=== PATIENT | male | born 1945 | race Caucasian/White ===

== ENCOUNTER 2017-10-09 16:08 | Inpatient (IN) | payer OTHER ==
[2017-10-10] MEDS ORDERED: BISACODYL 10 MG SUPP PR PRN (17:34)
[2017-10-10] MEDS ORDERED: POLYETHYLENE GLYCOL 3350 17 GM PKT PO PRN (17:34)
[2017-10-10] MEDS ORDERED: SENNOSIDES 1 TAB PO PRN (17:34)
--- NOTE | 2017-10-10 19:24 | GHP ---
[f rep st] HISTORY AND PHYSICAL POST ADMISSION PHYSICIAN EVALUATION AND REHABILITATION TREATMENT PLAN DATE OF ADMISSION: 10/10/2017 DATE OF EVALUATION: 10/10/2017 TIME OF EVALUATION: 1730 hours. REFERRING FACILITY: [facility]. REFERRING PHYSICIAN: Shay Goyal MD IMPAIRMENT GROUP: 1.1. DATE OF ONSET: 10/07/2017. REHABILITATION DIAGNOSIS: Bilateral thalamic cerebrovascular accident. ETIOLOGIC DIAGNOSIS: Left body involvement (right brain). HISTORY OF PRESENT ILLNESS: This patient was admitted to [facility] on 10/07/2017 after his found him to be lethargic and with slurred speech. He could not walk. He was brought to the Emergency Department , and was found to have an NIH Stroke Scale of 25-28. He was intubated and sent to the ICU. 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 He was treated with tPA, thrombolysis, and had considerable improvement. The etiology of the stroke was not completely clear. Atrial fibrillation was considered, but not found on telemetry. Subsequent MRI of the brain showed a bi-thalamic infarct, and small posterior cerebral artery and middle cerebral artery watershed infarcts. I do not have a record of an echocardiogram; presumably there was no embolic source seen. He had considerable improvement during his stay after thrombolysis. He was medically stable and ready for inpatient rehabilitation. OTHER LABORATORIES AND STUDIES: he initially had a low potassium, but this was corrected. Magnesium was normal. Urinalysis was normal. Basic metabolic profile showed renal insufficiency with a creatinine initially of 1.5, but this improved to 1.08 with an estimated GFR of 69. Urine drug screen done for altered mental status was normal. CBC was normal. Serum toxicology screen was negative for acetaminophen or alcohol. His salicylate level was nontoxic at 2.8. Hemoglobin A1c was 6.3. Total cholesterol was 184. HDL was low at 28. LDL was 89. Triglycerides were high at 337. Phosphorus was normal. Coagulation studies were normal. Troponin was negative. PRECAUTIONS: He is a fall risk. ACTIVE COMORBIDITIES: He has no tier 1, tier 2, or tier 3 comorbidities. PAST MEDICAL HISTORY: Hypertension. Influenza approximately 10 days ago. PAST SURGICAL HISTORY: He has not had surgeries. MEDICATIONS: Prior to admission: Amlodipine Admission medications: 1. Aspirin 81 mg p.o. daily. 2. Atorvastatin 40 mg p.o. at bedtime. 3. Clopidogrel 75 mg p.o. daily. 4. Nicotine patch. ALLERGIES: There are no known drug allergies. FAMILY HISTORY: Noncontributory. SOCIAL HISTORY: He is . He lives with his . He has 3 children. His youngest daughter is in medical school at the [employer] in [place]. He is a smoker, and has occasional alcohol use. 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 REVIEW OF SYSTEMS: He reports constipation x5 days. He reports altered sensation of taste, but denies change in smell. He reports visual changes, and in particular says that when he is reading he gets stuck on one line on the page and cannot skip to the next line. He denies double vision. He denies headache. He denies weakness, numbness, or tingling of the extremities. He denies difficulty swallowing. He denies cough or dyspnea. He does not have any craving for tobacco, and declines the offer of the nicotine patch. He denies nausea or vomiting. He has a reduced appetite. He thinks he has lost some weight. He denies chest pain or palpitations, joint pain or joint swelling , skin rash or skin breakdown. He has nocturia x2, typically. Otherwise, a 10- point review of systems is negative. PHYSICAL EXAM: VITAL SIGNS: Blood pressure is 133/79, heart rate is 73, respiratory rate is 16, oxygen saturation is 94% on room air, temperature is 36.6 degrees centigrade, his weight is 88.2 kg. GENERAL: This is a well- nourished, well-developed, elderly man. Appears his chronologic age. Well groomed, cooperative and in no acute distress. HEENT: Extraocular movements are overall intact, but he seems to have convergence with upgaze. Pupils are equal, round, and reactive to light. Visual huff are intact by confrontation. Mucous membranes are moist. Dentition is in good condition. He has a moderately crowded airway, Mallampati class 3. NECK: Supple. HEART: There is a regular rate and rhythm with no murmurs, rubs, or gallops. Heart sounds are somewhat distant. LUNGS: Clear to auscultation bilaterally. ABDOMEN: Soft, nontender, nondistended with normoactive bowel sounds, and no hepatosplenomegaly. EXTREMITIES: There is no cyanosis, clubbing, or edema. Radial and dorsalis pedis pulses are 1+ bilaterally. NEUROLOGIC: He is alert and oriented x3. He has word-finding difficulty. He has perseveration. There is no focal weakness. Sensation is intact to light touch. There is no extinction of sensation to double simultaneous stimulation. Deep tendon reflexes are 2+ bilaterally at the biceps, patella, and Achilles tendons. Plantar reflexes upgoing on the right and downgoing on the left. There is no pronator drift. Gait is mildly wide-based with short steps. There is no loss of balance observed. CURRENT LEVEL OF FUNCTION: Regarding diet, feeding and swallowing, he had been on a dysphagia 1 nectar thick diet, but subsequently he passed a video fluoroscopic swallow study, and was cleared for regular texture food and liquids. Regarding dressing, upper extremity required minimal assist, and lower extremity required assist. However, on exam today, he was able to doff and don socks and shoes independently. Toileting required minimal assist for transfers. He was able to transfer out of bed with a front-wheeled walker and minimal assist. Gait required minimal to moderate assistance with a front- wheeled walker. However, on today's exam, he was able to ambulate independently. For stairs he needed assistance. Regarding cognition, he was noted to follow simple commands. He had impaired problem solving and impaired insight, and he was overall noted to have apraxia, coordination deficits, and motor planning deficits. IMPRESSION: This patient is a 72-year-old man with a history of smoking and with cerebrovascular disease, who had a cerebrovascular accident with difficulty ambulating and altered level of consciousness. Initially, he was intubated in the hospital to protect his airway. He received tissue plasminogen activator thrombolysis, and has had considerable improvement. Evaluation with MR imaging revealed bilateral medial thalamic infarcts, as well as small watershed infarcts in the right posterior cerebral artery and middle cerebral artery territories. Following thrombolysis, he was treated with anti- platelet agents and atorvastatin, as he has dyslipidemia. He has had considered considerable functional improvement, but remains appropriate for inpatient rehabilitation to further evaluate and treat deficits to mobility, as well as activities of daily living. He will need particular attention from occupational therapy regarding visual processing and reaction time regarding potential safety of driving. He intends to return to driving for [employer] as soon as he can. He also has cognitive deficits, and will benefit from evaluation and treatment with speech therapy His goal is to complete a rehabilitation stay, and return home with his family. For a safe discharge he will need to achieve modified independence with mobility, activities of daily living, and medication management. There will need to be medication education and neurologic education for the patient and his family, and discharge planning for home health care and any other needs. He will have therapy with physical therapy, occupational therapy, and speech and language pathology for 60 minutes each day, for each discipline, on 5-7 days per week. When screened, his expected duration of stay was 17-21 days, but he appears to have improved since his screening in significant ways, including greater independence with mobility and normalization of swallowing. So, it is likely that his stay will be more on the 5-7 day range. It is anticipated that upon discharge he will continue to benefit from home health services, including speech and language pathology, occupational therapy and physical therapy. He also should have a pre-driving screen per occupational therapy. PLAN: 1. Cerebrovascular accident, bilateral medial thalamus, and small watershed infarcts in the right posterior cerebral artery and middle cerebral artery distributions. PT and OT to optimize mobility and activities of daily living towards discharge home at the modified independent level. 2. Cognitive impairment and reading difficulty. Speech language pathology regarding cognition. OT for visual processing evaluation. 3. Tobacco dependence syndrome. He believes that he is not addicted to tobacco. He denies craving. He agrees to continue the nicotine patch on a p.r.n. basis. 4. Dyslipidemia. He has been started on atorvastatin. He will be monitored for any adverse effects. 5. Renal insufficiency, normalized during his stay. There is no need for further laboratory studies at present. 6. Constipation, likely due to immobility. He does not have a history of constipation. I have ordered a bisacodyl suppository, as it has been 5 days since his last bowel movement. He might be best served by initially stimulating bowel movement from the distal GI tract, and I have ordered senna and polyethylene glycol on a p.r.n. basis. 7. Dysgeusia. Brief literature review finds reports of taste alteration with dorsomedial thalamic injury. He will have a dietary consult and attempt to provide foods which he would prefer, especially with his swallow being cleared. Family can bring in food. It is hoped that he will have recovery of normal taste sensation. 8. Weight loss per patient. He thinks it has something to do with recent history of upper respiratory infection and diagnosis of influenza, which per family happened approximately 10 days prior to the stroke. Again, there will be consultation with the dietitian, and his weight will be monitored on a routine basis. 9. Prophylaxis. He is not hemiparetic, and he is likely able to ambulate as far as 150 feet 3 times a day or more. There is no indication for chemoprophylaxis. He will have SCDs at night until his mobility is clearly normalized. Followup. It is unclear from materials received from [facility] whether or not followup long-term cardiac monitoring is indicated to rule out occult atrial fibrillation. This will be determined during his stay, and appropriate referral will be made. He was seen by Dr. Shay Goyal of the neurology service, and likely will need to follow up with Dr. Goyal. /[id number]/MODL MTDD
--- NOTE | 2017-10-10 19:28 | PDOREHIP ---
Admission [facility] - Admission - 3 Day Assessment Period Admission Date/Day 1: 10/10/17 Day 2: 10/11/17 Day 3: 10/12/17 - Active Diagnoses Comorbidities and Co-existing Conditions at Admission: 95653. None of the Above - Skin Conditions Unhealed Pressure Ulcer (1 or more/Stage 1 or >)-Admission: 0. No
[2017-10-10] MEDS: ATORVASTATIN CALCIUM 40 MG TAB PO SCH (21:17)
[2017-10-11] MEDS: NICOTINE 14 MG/24 HR PATCH TD SCH (08:38)
[2017-10-11] MEDS: ASPIRIN 81 MG CHEWABLE TAB PO SCH (08:38)
[2017-10-11] MEDS: CLOPIDOGREL BISULFATE 75 MG TAB PO SCH (08:38)
--- NOTE | 2017-10-11 17:51 | HOSPPROG ---
Hospitalist Progress Note Assessment/Plan: Assessment: 72 yo M p/w thalamic CVA s/p tPA w/ residual cognitive / visual / ambulatory / taste deficits Plan: # CVA. Thalamic, debility via cognitive / ambulatory impairments - cont ASA/plavix/statin - LDL 89 (goal 70), A1c 6.3% - will require outpatient cardiac rhythm monitoring - cont to monitor BP - f/u w/ Dr. Goyal - ongoing PT/OT/Cog therapy # Constipation. Resolved, cont bowel regimen Diet. Regular PPx. Mod risk, SCDs Code. Full Dispo. Ongoing therapy needs Subjective: patient feels like he is getting good therapy, had BM Objective: Vital Signs Temp Pulse Resp BP Pulse Ox 36.3 C 72 16 134/75 H 95 10/11/17 08:00 10/11/17 08:00 10/11/17 08:00 10/11/17 08:00 10/11/17 08:00 10/10/17 10/11/17 10/12/17 05:59 05:59 05:59 Intake Total 200 Balance 200 - Physical Exam Constitutional: no apparent distress, appears nourished, not in pain, other ( weathered) Eyes: PERRL, anicteric sclera, EOMI Cardiovascular: regular rate and rhythym, no murmur, rub, or gallop, No edema Respiratory: no respiratory distress, no rales or rhonchi, clear to auscultation Gastrointestinal: normoactive bowel sounds, soft, non-tender abdomen, no palpable masses Neurologic: AAOx3, sensation intact bilaterally, No weakness Psychiatric: interacting appropriately, not anxious, not encephalopathic, thought process linear ICD10 Worksheet Patient Problems: Problems Problem Status Onset CVA (cerebral vascular accident) Acute
[2017-10-11] MEDS: ATORVASTATIN CALCIUM 40 MG TAB PO SCH (21:37)
[2017-10-12] MEDS: NICOTINE 14 MG/24 HR PATCH TD SCH (08:06)
[2017-10-12] MEDS: ASPIRIN 81 MG CHEWABLE TAB PO SCH (08:25)
[2017-10-12] MEDS: CLOPIDOGREL BISULFATE 75 MG TAB PO SCH (08:26)
--- NOTE | 2017-10-12 12:12 | HOSPPROG ---
Hospitalist Progress Note Assessment/Plan: Assessment: 72 yo M p/w thalamic CVA s/p tPA w/ residual cognitive / visual / ambulatory / dysguesia Plan: # CVA. Thalamic, debility via cognitive / ambulatory impairments, patient with good insight and intentional speech - reviewed DC Summary by [facility], reports significant vascular occlusion but no flow limiting stenosis requiring intervention - cont ASA/plavix/statin - LDL 89 (goal 70), A1c 6.3% - will require outpatient cardiac rhythm monitoring - cont to monitor BP - f/u w/ Dr. Goyal - ongoing PT/OT/Cog therapy - counseled patient extensively that his level of insight is encouraging and improves his ability to engage in therapies - encouraged him to continue working diligently on his reading tasks, which he is doing between therapy sessions (has not been able to get past 1st page during entirety of hospitalization) - appears to have some possible disinhibition, but may be his baseline # Cough. Poor insp/exp effort on pulm exam, not hypoxic - cough/congestion may be related to abruptly/recently stopping smoking, commonly occurs - will add anti-histamine HS, mucinex scheduled for symptomatic relief - reviewed [facility] records, report most recent CXR 10/07 w/o infiltrate, but he is at risk for developing PNA given that he was on vent during that episode of care - does not appear toxic, will get a CBC and sputum Cx to gauge whether he has leukocytosis which would prompt us to investigate further w/ CXR # Constipation. Resolved, cont bowel regimen Diet. Regular PPx. Mod risk, SCDs Code. Full Dispo. Ongoing therapy needs Subjective: ongoing productive cough Objective: Vital Signs Temp Pulse Resp BP Pulse Ox 36.6 C 89 18 123/71 H 93 10/12/17 08:00 10/12/17 08:00 10/12/17 08:00 10/12/17 08:00 10/12/17 08:00 10/11/17 10/12/17 10/13/17 05:59 05:59 05:59 Intake Total 200 360 350 Output Total 100 200 Balance 200 260 150 - Time Spent With Patient Time Spent with Patient: greater than 35 minutes Time Spent with Patient: Greater than 35 minutes spent on this patients care, greater than 50% of time spent counseling, educating, and coordinating care regarding the above mentioned plan. - Physical Exam Constitutional: no apparent distress, appears nourished, not in pain Cardiovascular: regular rate and rhythym, no murmur, rub, or gallop (distant), No edema Respiratory: reduced air movement (on expiration), other (cough triggered w/ deep insp), No expiratory wheeze, No inspiratory crackles, No bronchial breath sounds, No respiratory distress Gastrointestinal: normoactive bowel sounds, soft, non-tender abdomen, no palpable masses Neurologic: AAOx3, No weakness, No facial droop Psychiatric: not encephalopathic, thought process linear, anxious, other (good insight, intentional speech, fluent speech, some disinhibition by patient discussing physical attributes of female staff), No agitated ICD10 Worksheet Patient Problems: Problems Problem Status Onset CVA (cerebral vascular accident) Acute
[2017-10-12] MEDS ORDERED: ALBUTEROL 200 PUFFS/18 GM MDI IH PRN (12:45)
[2017-10-12] MEDS: guaiFENesin 600 MG TAB.ER PO SCH ×2 (13:12→20:01)
[2017-10-12 14:07] LABS: PLATELET COUNT 229 10^3/uL (150-400)
[2017-10-12] MEDS: ATORVASTATIN CALCIUM 40 MG TAB PO SCH (20:01)
[2017-10-12] MEDS: CETIRIZINE 10 MG TAB PO SCH (20:01)
--- NOTE | 2017-10-13 09:47 | SOAPPROG ---
SOAP Progress Note Assessment/Plan: Assessment: * Cerebrovascular accident, bilateral medial thalamus, and small watershed infarcts in the right posterior cerebral artery and middle cerebral artery distributions. * PT and OT to optimize mobility and activities of daily living towards discharge home at the modified independent level. * Cognitive impairment and reading difficulty. * Speech language pathology regarding cognition. OT for visual processing evaluation. * Tobacco dependence syndrome. * Denies craving * Nicotine patch is available on a p.r.n. basis. * Dyslipidemia. He has been started on atorvastatin. He will be monitored for any adverse effects. * Renal insufficiency, normalized during his stay. There is no need for further laboratory studies at present. * Constipation, likely due to immobility. * Responding to Senna * Dysgeusia. Brief literature review finds reports of taste alteration with dorsomedial thalamic injury. * May explain his reaction to hospital food. * Weight loss per patient. * Consultation with the dietitian. * Prophylaxis. He is not hemiparetic, and has recover normal ambulation. * No indication for pharmacologic prophylaxis. * Will discontinue SCDs. Followup. Has Holter monitor and will follow up with Cardiology. He was seen by Dr. Shay Goyal of the neurology service, and will need to follow up with Dr. Goyal. 10/13/17 14:52 Subjective: Dislikes the SCDs. Would rather not wear the Holter monitor. Does not like the food but finds it palatable if he adds enough salt and pepper. Otherwise without complaints. Objective: Vital Signs Temp Pulse Resp BP Pulse Ox 36.8 C 76 13 117/70 91 L 10/12/17 19:50 10/12/17 19:50 10/12/17 19:50 10/12/17 19:50 10/12/17 19:50 Microbiology 10/12/17 18:10 - Final Sputum, Expectorated Laboratory Results 10/12/17 13:00 10/12/17 13:00 10/12/17 10/13/17 10/14/17 05:59 05:59 05:59 Intake Total 360 910 Output Total 100 301 Balance 260 609 Physical Exam - Physical Exam General Appearance: WD/WN, alert, no apparent distress Respiratory: normal breath sounds, No crackles, No rhonchi, No wheezing Cardiac/Chest: regular rate, rhythm, No edema Skin: normal color, warm/dry Neuro/Psych: alert, normal mood/affect, oriented x 3, No abnormal gait ICD10 Worksheet Patient Problems: Problems Problem Status Onset CVA (cerebral vascular accident) Acute
[2017-10-13] MEDS ORDERED: NICOTINE 14 MG/24 HR PATCH TD PRN (09:49)
[2017-10-13] MEDS: ASPIRIN 81 MG CHEWABLE TAB PO SCH (09:55)
[2017-10-13] MEDS: CLOPIDOGREL BISULFATE 75 MG TAB PO SCH (09:55)
[2017-10-13] MEDS: guaiFENesin 600 MG TAB.ER PO SCH ×2 (09:55→20:44)
[2017-10-13] MEDS: NICOTINE 14 MG/24 HR PATCH TD SCH (10:01)
[2017-10-13] MEDS ORDERED: PNEUMOC 13-VAL CONJ-DIP CRM/PF 0.5 ML SYR IM ONE ×3 (15:26→20:34)
[2017-10-13] MEDS: CETIRIZINE 10 MG TAB PO SCH (20:44)
[2017-10-13] MEDS: ATORVASTATIN CALCIUM 40 MG TAB PO SCH (20:45)
[2017-10-14] MEDS: guaiFENesin 600 MG TAB.ER PO SCH ×2 (09:09→21:05)
[2017-10-14] MEDS: ASPIRIN 81 MG CHEWABLE TAB PO SCH (09:09)
[2017-10-14] MEDS: CLOPIDOGREL BISULFATE 75 MG TAB PO SCH (09:09)
--- NOTE | 2017-10-14 10:09 | SOAPPROG ---
SOAP Progress Note Assessment/Plan: 72-year-old male with bilateral medial thalamic stroke Today's update: Patient doing well and very talkative. 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 History of elevated white blood cell count and renal insufficiency, rechecking Chem 7 and CBC tomorrow. Preliminary culture of sputum showed mixed denilson, smear did have 2+ polys. No respiratory symptoms per the patient, exam clear. Continue to monitor. A total of 35 min was spent on the floor in the care of the patient, the majority of which was spent in the counseling and coordination of care regarding overall rehab plan with the patient and options for continuing therapy on discharge. * Cerebrovascular accident, bilateral medial thalamus, and small watershed infarcts in the right posterior cerebral artery and middle cerebral artery distributions. Impairments in mobility and self-care. * PT and OT to optimize mobility and activities of daily living towards discharge home at the modified independent level. * Cognitive impairment and reading difficulty. * Speech language pathology regarding cognition. OT for visual processing evaluation. * Tobacco dependence syndrome. * Nicotine patch is available on a p.r.n. basis. * Dyslipidemia. He has been started on atorvastatin. He will be monitored for any adverse effects. * Renal insufficiency, normalized during his stay. Will recheck a Chem 7 and CBC given elevated white blood cell count and mild hypernatremia as well as history of renal insufficiency. * Constipation, likely due to immobility. * Responding to Senna * Dysgeusia. Brief literature review finds reports of taste alteration with dorsomedial thalamic injury. * May explain his reaction to hospital food. * Weight loss per patient. * Consultation with the dietitian. * Prophylaxis. He is not hemiparetic, and has recovered normal ambulation. * No indication for pharmacologic prophylaxis. Followup. Has Holter monitor and will follow up with Cardiology. He was seen by Dr. Shay Goyal of the neurology service, and will need to follow up with Dr. Goyal. 10/14/17 10:04 10/14/17 10:07 Subjective: Chief complaint: Bad tasting food No acute events overnight. Patient endorsed that his appetite is improving, still feels that the coffee is bad. Denies any shortness of breath or chest pain, no new numbness, tingling, or weakness. He is frustrated that his reading level is not up to his premorbid status of reading a approximately 800 page book in 2 days. Denies feeling fever or chills. Discussed and answered questions extensively regarding discharge planning and overall rehabilitation course. Objective: Vital Signs Temp Pulse Resp BP Pulse Ox 36.6 C 65 16 134/76 H 91 L 10/14/17 06:25 10/14/17 06:25 10/14/17 06:25 10/14/17 06:25 10/14/17 06:25 Microbiology 10/12/17 18:10 - Final Sputum, Expectorated Laboratory Results 10/12/17 13:00 10/12/17 13:00 10/13/17 10/14/17 10/15/17 05:59 05:59 05:59 Intake Total 910 200 200 Output Total 301 300 150 Balance 609 -100 50 Physical Exam - Physical Exam General Appearance: alert, no apparent distress EENT: No scleral icterus (R), No scleral icterus (L) Respiratory: lungs clear, normal breath sounds, No respiratory distress, No accessory muscle use, No decreased breath sounds, No crackles, No rhonchi, No wheezing Cardiac/Chest: normal peripheral pulses, regular rate, rhythm, No edema Skin: normal color, warm/dry, No cyanosis Extremities: No pedal edema, No swelling Neuro/Psych: alert, normal mood/affect ICD10 Worksheet Patient Problems: Problems Problem Status Onset CVA (cerebral vascular accident) Acute
[2017-10-14] MEDS: ATORVASTATIN CALCIUM 40 MG TAB PO SCH (21:05)
[2017-10-14] MEDS: CETIRIZINE 10 MG TAB PO SCH (21:05)
[2017-10-15] MEDS: ASPIRIN 81 MG CHEWABLE TAB PO SCH (08:20)
[2017-10-15] MEDS: guaiFENesin 600 MG TAB.ER PO SCH ×2 (08:20→19:54)
[2017-10-15] MEDS: CLOPIDOGREL BISULFATE 75 MG TAB PO SCH (08:20)
--- NOTE | 2017-10-15 12:28 | SOAPPROG ---
SOAP Progress Note Assessment/Plan: Assessment: * Cerebrovascular accident, bilateral medial thalamus, and small watershed infarcts in the right posterior cerebral artery and middle cerebral artery distributions. * Initial functional independence measure 94. Independent in his room. Climbed and descended forefoot of stairs using 1 rail. Has deficits to initiation and motor planning. Independent with ADLs. Needs setup to supervision level for bathing. Has abnormal visual processing, considerably slower than norms per age on testing per OT. Advised to not drive. * Continue PT and OT to optimize mobility and activities of daily living towards discharge home at the modified independent level. * Cognitive impairment and reading difficulty. * Noted to be tangential and word-finding difficulty. Has slowed response time. * Continue Speech language pathology. * Nocturia * Advise no caffeinated beverage with dinner or after; reduce fluid intake after dinner. * He is reticent to try medication regarding possible benign prostatic hypertrophy. * Check postvoid residual by bladder scan. * Tobacco dependence syndrome. * Denies craving * Nicotine patch is available on a p.r.n. basis. * Dyslipidemia. He has been started on atorvastatin. He will be monitored for any adverse effects. * Renal insufficiency. * Recheck basic metabolic profile. * Constipation, likely due to immobility. * Responding to Senna * Dysgeusia. Brief literature review finds reports of taste alteration with dorsomedial thalamic injury. * May explain his reaction to hospital food. * Weight loss per patient. * Consultation with the dietitian. * Prophylaxis. He is not hemiparetic, and has recover normal ambulation. * No indication for pharmacologic prophylaxis. * Will discontinue SCDs. Attended staffing, 15 min. Discussed with case management, pharmacy, dietitian , nursing, PT, OT, [employer]. Anticipate discharge 10/17/2017. Will have home PT OT and [employer]. Followup. Has Holter monitor and will follow up with Cardiology. He was seen by Dr. Shay Goyal of the neurology service, and will need to follow up with Dr. Goyal. 10/15/17 12:22 Subjective: Continues to complain of altered stiff taste. Particularly notices it when drinking coffee which she used to enjoy tremendously. Also reports entry a, which he did not experience previous stroke. He has tried a condom cath but is worried overnight that it may come off. He has tried a handheld urinal but he falls asleep and then has spilled it. With further discussion he reports that he is drinking coffee in the evening in an attempt to joints flavor which continues to be frustrating to him. Otherwise without complaints. No fevers, chills, cough, dyspnea. Objective: Vital Signs Temp Pulse Resp BP Pulse Ox 36.8 C 78 16 113/71 93 10/15/17 07:52 10/15/17 07:52 10/15/17 07:52 10/15/17 07:52 10/15/17 07:52 Microbiology 10/12/17 18:10 - Final Sputum, Expectorated Sputum Culture - Final Laboratory Results 10/12/17 13:00 10/12/17 13:00 10/14/17 10/15/17 10/16/17 05:59 05:59 05:59 Intake Total 200 922 Output Total 300 750 Balance -100 172 - Time Spent With Patient Time Spent With Patient: Greater than 35 min staff time today, including more than 50% of time in coordination of care during staffing meeting, and counseling patient. Physical Exam - Physical Exam General Appearance: WD/WN, alert, no apparent distress Respiratory: normal breath sounds, No crackles, No rhonchi, No wheezing Cardiac/Chest: regular rate, rhythm, No edema, No diastolic murmur, No systolic murmur Skin: normal color, warm/dry Neuro/Psych: alert, normal mood/affect, oriented x 3 ICD10 Worksheet Patient Problems: Problems Problem Status Onset CVA (cerebral vascular accident) Acute
[2017-10-15] MEDS: ATORVASTATIN CALCIUM 40 MG TAB PO SCH (19:54)
[2017-10-15] MEDS: CETIRIZINE 10 MG TAB PO SCH (19:54)
[2017-10-16] MEDS: guaiFENesin 600 MG TAB.ER PO SCH ×2 (08:15→21:57)
[2017-10-16] MEDS: CLOPIDOGREL BISULFATE 75 MG TAB PO SCH (08:15)
[2017-10-16] MEDS: ASPIRIN 81 MG CHEWABLE TAB PO SCH (08:15)
[2017-10-16 08:21] LABS: PLATELET COUNT 251 10^3/uL (150-400)
--- NOTE | 2017-10-16 09:47 | PDOREHIP ---
Admission [facility] - Admission - 3 Day Assessment Period Admission Date/Day 1: 10/10/17 Day 2: 10/11/17 Day 3: 10/12/17 Discharge [facility] - Discharge - 3 Day Assessment Period 2 Days Prior to Anticipated Discharge Date: 10/15/17 1 Day Prior to Anticipated Discharge Date: 10/16/17 Anticipated Discharge Date: 10/17/17 - Discharge Skin Conditions Unhealed Pressure Ulcer (1 or more/Stage 1 or >)-Discharge: 0. No
--- NOTE | 2017-10-16 10:33 | SOAPPROG ---
SOAP Progress Note Assessment/Plan: 72-year-old male with bilateral medial thalamic stroke Today's update: Experiencing some fatigue associated with therapy, as expected after stroke. Improving word finding but still having some difficulty. Making good progress overall, remainder of rehab plan below is unchanged. A total of 35 min was spent on the floor in the care of the patient, the majority of which was spent counseling and coordination of care regarding discharge planning. * Cerebrovascular accident, bilateral medial thalamus, and small watershed infarcts in the right posterior cerebral artery and middle cerebral artery distributions. Impairments in mobility and self-care * Initial functional independence measure 94. Independent in his room. Climbed and descended forefoot of stairs using 1 rail. Has deficits to initiation and motor planning. Independent with ADLs. Needs setup to supervision level for bathing. Has abnormal visual processing, considerably slower than norms per age on testing per OT. Advised to not drive. * Continue PT and OT to optimize mobility and activities of daily living towards discharge home at the modified independent level. * Cognitive impairment and reading difficulty. * Noted to be tangential and word-finding difficulty. Has slowed response time. * Continue Speech language pathology. * Nocturia: Still has some symptoms, urinary frequency as well. * Advise no caffeinated beverage with dinner or after; reduce fluid intake after dinner. * He is reticent to try medication regarding possible benign prostatic hypertrophy. * Check postvoid residual by bladder scan. * Condom cath at night * Tobacco dependence syndrome. * Denies craving * Nicotine patch is available on a p.r.n. basis. * Dyslipidemia. He has been started on atorvastatin. He will be monitored for any adverse effects. * Renal insufficiency. Mildly improving creatinine comma stable in slightly elevated sodium * Monitor as outpatient * Constipation, likely due to immobility. * Responding to Senna * Dysgeusia. Brief literature review finds reports of taste alteration with dorsomedial thalamic injury. He reports improving taste sensation * May explain his reaction to hospital food. * Weight loss per patient. * Consultation with the dietitian. * Prophylaxis. He is not hemiparetic, and has recover normal ambulation. * No indication for pharmacologic prophylaxis. * Will discontinue SCDs. Discussed with case management, pharmacy, dietitian, nursing, PT, OT, [employer]. Anticipate discharge 10/17/2017. Will have home PT OT and P[employer]. Followup. Has Holter monitor and will follow up with Cardiology. He was seen by Dr. Shay Goyal of the neurology service, and will need to follow up with Dr. Goyal. 10/14/17 10:04 10/14/17 10:07 10/16/17 10:30 Subjective: Chief complaint: Neurological progress No acute events overnight. Patient continues to make good neurological progress. Denies any new shortness of breath or chest pain, no new numbness, tingling, or weakness. He is somewhat disappointed that he is going home before he thinks he is ready to, however he is accepting of it in looking forward to continue his rehabilitation. He endorses ongoing increased urinary frequency and some incontinence, working to manage his fluids. He also endorses some ongoing word-finding difficulties but feels that this may be getting better. He also endorses some fatigue that is generally associated with intensive therapy and he is sleeping more hours at night than previously. He denies any depression. He feels that food is overall tasting better. Objective: Vital Signs Temp Pulse Resp BP Pulse Ox 36.4 C 81 17 134/82 H 93 10/16/17 07:15 10/16/17 07:15 10/16/17 07:15 10/16/17 07:15 10/16/17 07:15 Laboratory Results 10/16/17 06:40 10/16/17 06:40 10/15/17 10/16/17 10/17/17 05:59 05:59 05:59 Intake Total 922 536 Output Total 750 450 Balance 172 86 Physical Exam - Physical Exam General Appearance: alert, no apparent distress Respiratory: No respiratory distress, No accessory muscle use Cardiac/Chest: normal peripheral pulses, regular rate, rhythm, No edema Skin: normal color, warm/dry, No cyanosis, No diaphoresis Extremities: No pedal edema, No swelling Neuro/Psych: alert, normal mood/affect, oriented x 3 ICD10 Worksheet Patient Problems: Problems Problem Status Onset CVA (cerebral vascular accident) Acute
[2017-10-16] MEDS: CETIRIZINE 10 MG TAB PO SCH (21:57)
[2017-10-16] MEDS: ATORVASTATIN CALCIUM 40 MG TAB PO SCH (21:57)
[2017-10-16 22:45] VITALS: RESP 16
[2017-10-17] MEDS: guaiFENesin 600 MG TAB.ER PO SCH (09:00)
[2017-10-17] MEDS: CLOPIDOGREL BISULFATE 75 MG TAB PO SCH (09:00)
[2017-10-17] MEDS: ASPIRIN 81 MG CHEWABLE TAB PO SCH (09:00)
[2017-10-17 12:18] VITALS: BP 124/81; PULSE 75; TEMP 98.7; O2SAT 96
--- NOTE | 2017-10-17 20:18 | GDS ---
[f rep st] DISCHARGE SUMMARY ADMISSION DIAGNOSES: Cerebrovascular accident, bilateral medial thalamus with small watershed infarcts in the right posterior cerebral artery and middle cerebral artery distributions. DISCHARGE DIAGNOSIS: Cerebrovascular accident, bilateral medial thalamus with small watershed infarcts in the right posterior cerebral artery and middle cerebral artery distributions. OTHER DISCHARGE DIAGNOSES: 1. Cognitive impairment and reading difficulty. 2. Nocturia. 3. Tobacco dependence syndrome. 4. Dyslipidemia. 5. Dysgeusia. CONSULTATIONS: There were none. PROCEDURES: There were none. COMPLICATIONS: There were none. HISTORY/HOSPITAL COURSE: This patient was admitted from [facility] where he had presented on 10/07/2017. His found him to be lethargic and with slurred speech and unable to walk. He was brought to the emergency room, where his NIH Stroke Scale was 25-28. He was intubated and sent to the ICU. 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 He was treated with tPA thrombolysis and had considerable improvement. The etiology of the stroke was not clear. Atrial fibrillation was considered a possibility, but was not found on telemetry. Subsequent MR imaging of the brain showed bi-thalamic infarcts and small posterior cerebral artery and middle cerebral artery watershed infarcts. He had considerable improvement in rehabilitation. He soon became independent regarding mobility in his room. He was able to climb and descend 4 flights of stairs using 1 rail. He was noted to have some deficits to initiation of movement and motor planning. Otherwise, he achieved independence with activities of daily living, though he needed setup to supervision for bathing. He had slowed visual processing and he was advised to not drive. There was cognitive impairment initially and difficulty reading. These improved. He was advised to continue speech and language pathology treatment. He had been a smoker for 50 years. He was offered nicotine patch. He denied any craving for tobacco and does not intend to return to smoking. He had mild renal insufficiency which resolved during his stay with a creatinine of 1.1 and an estimated GFR of greater than 60 on his last lab testing on 10/16/2017. He had dysgeusia. Literature review revealed reports of taste alteration with dorsomedial thalamic injury, so it was considered that his loss of taste sensation was due to his stroke. He had improvement during his stay, but not full resolution. He complained of nocturia. Due to his dysgeusia, he was drinking excessive amounts of coffee, especially in the evenings in an attempt to experience a sensation of taste. Coffee with cream and sugar was one of his favorite things to drink. He was advised to limit fluid intake after dinner and to have no caffeinated beverages in the evenings. Postvoid residual was checked and was found to be in the normal range at 89 cc. PHYSICAL EXAMINATION ON DAY OF DISCHARGE: VITAL SIGNS: Blood pressure is 124/ 81, heart rate is 75, respiratory rate is 16, oxygen saturation is 96% on room air. Temperature is 37.1 degrees centigrade. GENERAL: This is a well- nourished, well-developed, overweight man, sitting up on the edge of his bed, cooperative, and in no acute distress. HEART: There is regular rate and rhythm with no murmurs, rubs, or gallops. LUNGS: Clear to auscultation bilaterally. ABDOMEN: Benign. NEUROLOGIC: He has somewhat slow processing and delayed word recall. Otherwise, there is no focal weakness. Sensation is intact to light touch and gait is within normal limits. LABORATORY STUDIES: On 10/16/2017, his CBC was completely within normal limits. His serum chemistry showed a slightly high sodium at 146, a slightly high chloride at 112; otherwise renal function and electrolytes were within normal limits. CONDITION UPON DISCHARGE: Good. DISCHARGE INSTRUCTIONS: 1. Activity: Ad arley, but he is advised to not drive until he has a pre- driving screen per Occupational Therapy. 2. Diet: Cardiac. 3. Date of next appointment: He has followup scheduled with neurologist, Dr. Goyal, on 12/01/2017; with primary care provider, Dr. Con Mackay, on 2017; and with [facility] on 10/22/2017. MEDICATIONS AT DISCHARGE: 1. Aspirin 81 mg p.o. daily. 2. Atorvastatin 40 mg p.o. at bedtime. 3. Cetirizine 10 mg p.o. at bedtime. 4. Clopidogrel 75 mg p.o. daily. 5. Guaifenesin 1200 mg p.o. twice daily. 6. Polyethylene glycol 17 g p.o. daily p.r.n. 7. Senna 1 tablet p.o. twice daily p.r.n. ISSUES TO BE ADDRESSED AT FOLLOWUP: 1. Functional status post CVA: He will continue with home occupational therapy , physical therapy, and speech and language therapy after discharge. 2. Cryptogenic etiology of stroke: He will follow up with Cardiology with anticipation of placement of a 30-day monitor to rule out occult atrial fibrillation. 3. Dysgeusia: It is anticipated that he will continue to have improvement in his sense of taste. 4. Risk of recurrent stroke or of myocardial infarction: He had detailed questions and indications for his medications for secondary prevention were discussed in detail. Additionally, he was advised to begin regular exercise and to maintain a healthy diet. Greater than 30 minutes was spent on this discharge with the majority being coordination of care and counseling patient. Copy requested to: [facility] Con Mackay MD /[id number]/MODL [email or web address]
== END 2017-10-17 18:00 | disposition home health service (06) | DRG 57 ==
LOC: BREH 10-10 15:50
PROVIDERS: ADMIT Internal Medicine; ATTEND Internal Medicine
PROC: F0636ZZ Communicative/Cognitive Integration Skills Treatment of Neurological System - Whole Body (ICD-10-PCS; principal; 2017-10-10)
PROC: F08Z4ZZ Home Management Treatment (ICD-10-PCS; principal; 2017-10-10)
PROC: F08Z7ZZ Vocational Activities and Functional Community or Work Reintegration Skills Treatment (ICD-10-PCS; principal; 2017-10-10)
DX: I69.318 Other symptoms and signs involving cognitive functions following cerebral infarction (principal); I69.398 Other sequelae of cerebral infarction; R43.2 Parageusia; K59.00 Constipation, unspecified; E78.5 Hyperlipidemia, unspecified; F17.200 Nicotine dependence, unspecified, uncomplicated; I10 Essential (primary) hypertension; R35.1 Nocturia; R05 Cough; N28.9 Disorder of kidney and ureter, unspecified; R63.4 Abnormal weight loss; Z79.02 Long term (current) use of antithrombotics/antiplatelets; Z79.82 Long term (current) use of aspirin; Z23 Encounter for immunization
CPT/HCPCS: 92507-GN; 92522-GN; 92610-GN; 97110-GO; 97110-GP; 97112-GP; 97116-GP; 97162-GP; 97166-GO; 97530-GO; 97532-GO; 97535-GO; G0009